=== PATIENT | male | born 1960 | race Caucasian/White ===

== ENCOUNTER → 2017-08-01 | Outpatient (CLI) | payer OTHER ==
[~2017-08-01] MED LIST: ACE325 PO; ACET-3017 PO; AMLO-98 PO; AMLO-99 PO; CEP500 PO; DILT360C25 PO; DOC100 PO; FAM20 PO; HYDR12.561 PO; IBU600 PO; IBU800 PO; LEVO-85 PO; LOR5/325 PO; METR-1 PO; OLME1TAB49 PO; OXYM30SP2 NS; PER PO; PRA20 PO; PRAV40TA77 PO; SUMA1TAB3 PO; SUMA1TAB6; VALS320T12 PO
[2017-08-01 07:42] LABS: PLATELET COUNT, AUTOMATED 249 K/uL (150-450)
[2017-08-01 07:52] LABS: LDL CHOLESTEROL 91 mg/dl
== END ==
LOC: LAB 07:10
PROVIDERS: ATTEND Internal Medicine
DX: K57.92 Diverticulitis of intestine, part unspecified, without perforation or abscess without bleeding (principal); I10 Essential (primary) hypertension
CPT/HCPCS: 36415; 81001; 82040; 82247; 82310; 82374; 82435; 82465; 82565; 82947; 83718; 84075; 84132; 84155; 84295; 84443; 84450; 84460; 84478; 84520; 84550; 85025